=== PATIENT | female | born 1975 | race African-American/Black ===

== ENCOUNTER 2023-02-28 15:28 | Emergency (ER) | payer MEDICAID, OTHER ==
[~2023-02-28] VITALS: Ht 162.6 cm; Wt 100.0 kg
[2023-02-28 15:32] VITALS: PULSE 67; RESP 18
[2023-02-28 15:52] VITALS: BP 124/62; TEMP 98.8; O2SAT 98
[2023-02-28] MEDS ORDERED: TETRACAINE 0.5% OPHTH DROPS 4ML RIGHTEYE ONE (16:45)
[2023-02-28] MEDS ORDERED: FLUORESCEIN SODIUM 1MG/STRIP RIGHTEYE ONE (16:45)
[2023-02-28] MEDS ORDERED: ERYT1OIN6 RIGHTEYE (17:24)
== END 2023-02-28 18:31 | disposition home or self-care (01) ==
LOC: ER 15:28
DX: S05.01XA Injury of conjunctiva and corneal abrasion without foreign body, right eye, initial encounter (principal); Z88.6 Allergy status to analgesic agent; Z88.8 Allergy status to other drugs, medicaments and biological substances; X58.XXXA Exposure to other specified factors, initial encounter; Y93.89 Activity, other specified; Y92.89 Other specified places as the place of occurrence of the external cause; Y99.8 Other external cause status
CPT/HCPCS: 99283